=== PATIENT | male | born 1935 | race Caucasian/White ===

== ENCOUNTER → 2018-02-09 10:54 | Outpatient (CLI) | payer MEDICARE, OTHER, SELFPAY ==
[2018-02-09 11:07] LABS: Add Manual Diff / Slide Review NO; Basophils Percent Auto 1.2 % (0-2); Eosinophils Percent Auto 1.6 % (2-4); Hematocrit 39.5 % (41-53); Hemoglobin 13.6 g/dL (13.5-17.5); Lymphocytes Percent Auto 21.9 % (25-40); Mean Corpuscular HGB Conc 34.3 % (30-36); Mean Corpuscular Hemoglobin 31.8 PG (26-34); Mean Corpuscular Volume 92.8 fL (80-100); Neutrophils Absolute Auto 4500 /uL (3000-5900); Neutrophils Percent Auto 63.3 % (50-75); Platelet Count 279 X10^3/uL (150-400); Red Blood Cell Count 4.26 X10^6/uL (4.5-5.9); Red Cell Distribution Width 13.8 % (11.6-14.8); White Blood Cell Count 7.1 X10^3/uL (4.5-11.0)
[2018-02-09 11:18] LABS: Alanine Aminotransferase 26 IU/L (21-72); Albumin 4.4 g/dL (3.5-5.0); Albumin Globulin Ratio 1.6 (1.0-2.8); Alkaline Phosphatase 49 U/L (38-126); Aspartate Aminotransferase 27 IU/L (17-59); BUN Creatinine Ratio 22.2 (6-22); Blood Urea Nitrogen 20 mg/dL (9-20); Calcium 9.1 mg/dL (8.4-10.2); Carbon Dioxide 25 mmol/L (22-32); Chloride 98 mmol/L (98-107); Estimated Glomerular Filt Rate > 60.0 mL/min (>60); Globulin 2.7 g/dL (1.7-4.1); Glucose 97 mg/dL (80-110); HEMOLYSIS < 15 (0-50); Potassium 4.8 mmol/L (3.4-5.1); Sodium 136 mmol/L (137-145); Total Protein 7.1 g/dL (6.3-8.2)
--- NOTE | 2018-02-09 15:05 | PC.NURSE ---
stable labs, provider visit 02/13
== END ==
PROVIDERS: Family Provider Family Medicine; PCP Family Medicine; Visit Provider Nurse Practitioner Gerontology
DX: C76.0 Malignant neoplasm of head, face and neck (principal)
CPT/HCPCS: 36415; 80053; 85025

== ENCOUNTER → 2018-05-10 10:30 | Oncology outpatient (ONC) | payer MEDICARE, OTHER, SELFPAY ==
--- NOTE | 2018-02-13 09:26 | P.PNONC_ITS ---
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 He completed adjuvant combined modaltiy with therapy in March 2011. Joshua has no new complaints today. he reports having a recent visit with ENT Dr Boyer. In review of Dr Boyer' notes dated November 23, 2017 patient had presented with a symptomatic right facial swelling. MRI CT reports were reviewed imaging without evidence of disease recurrence. flexible laryngoscopy unremarkable, also without evidence of disease recurrence. The patient reports overall he is doing well. No new changes to report. He states ?I am the same?. No worsening issues with swallow. No new oral lesions, no new oral lumps or bumps. No change in his speech. No unexplained weight loss. No new pain. No new lumps or bumps. I have requested imaging reports from [facility]. Oncologic history: He was discovered to have a mass lesion on the floor of the mouth in late 2010. He was referred to Dr. Boyer, who referred him to Joo Daniels at [facility]. 12/2010: total oral glossectomy with right complete neck dissection and left modified radical neck dissection, with radial free flap reconstruction. Adjuvant chemoradiation with weekly cisplatin 30 mg/m2, completed 04/22/2011. He received 64 Gy in 32 fractions. Subsequently seen in regular surveillance at [facility] by Dr. Joo Daniels, Rola Raines and Edenilson Verduzco, and by his dentist every four months. 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 He wishes to have surveillance closer to home. 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 Home Medications and Allergies Home Medications Medication Instructions Recorded Confirmed Type lisinopril [Prinivil] 20 mg PO Q DAY #0 06/14/11 History amlodipine [Norvasc] 5 mg PO QDAY #0 05/19/16 History simvastatin 10 mg PO HS #0 05/19/16 History acetaminophen 325 mg PO Q4HP PRN #60 02/25/17 Rx aspirin 81 mg PO QDAY #0 05/20/17 History Allergies Allergy/AdvReac Type Severity Reaction Status Date / Time bee venom protein (honey bee) Allergy Severe HAND Unverified 06/08/17 12:18 [BEE VENOM PROTEIN (HONEY SWELLING BEE)] cefazolin [CEFAZOLIN] Allergy Severe HIVES Unverified 06/08/17 12:18 Exam Narrative: Appears younger than chronological age of 82. - Constitutional positive no acute distress - Routine HEENT Exam Eye: Present: conjunctivae pink. Absent: conjunctival icterus, scleral injection ENT: Present: mucous membranes moist, oropharynx clear Comments: no oral lesions, no visible masses - Routine Neck Exam Present: supple. Absent: lymphadenopathy, swelling - Routine Chest/Breast/Axilla Exam Axillae: Absent: lymphadenopathy, mass, tenderness - Routine Respiratory Exam Present: Clear to auscultation bilaterally. Absent: rales, rhonchi, wheezes - Routine Cardiovascular Exam Present: RRR, S1, S2. Absent: murmur, gallop, rubs, JVD - Routine Abdominal Exam Present: soft, normoactive bowel sounds. Absent: tenderness, distended, organomegaly, mass - Routine Extremities Exam Absent: edema, calf tenderness - Routine Skin Exam Present: intact, normal turgor. Absent: petechiae, rash - Routine Neurological Exam Present: alert, oriented X3 - Routine Psychiatric Exam Present: normal affect Results - Imaging Additional studies: Procedures Repair of hammer toe (09/04/10) Assessment and Plan (1) Squamous cell carcinoma Current visit: Yes Status: Acute 82-year-old male presents for routine scheduled triage. 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 He completed adjuvant combined modality therapy in March of 2011. Reassuringly on exam today he has no clinical signs or symptoms which would indicate recurrence. Additionally the patient was evaluated by ENT Dr. Boyer November 23, 2017 flexible laryngoscopy exam unremarkable, no evidence of disease recurrence. Patient reports he did have MRI also CT scan in October or November of this year at [facility]. He was told ?everything okay?. I have requested these results. Return to clinic in 3 months time I would like for the patient to establish with our oncologist Dr Macedo. CBC CMP unremarkable today no need to repeat for his next visit. - Time Spent with Patient 20 mins
[2018-02-13 09:40] VITALS: BP 129/72; PULSE 65; RESP 18; TEMP 36.8; O2SAT 99
[2018-05-10 10:36] VITALS: BP 141/78; PULSE 75; RESP 16; TEMP 36.5; O2SAT 100
--- NOTE | 2018-05-10 10:50 | ONC.PN ---
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 Previous treatment: 1. total oral glossectomy with right complete neck dissection and left modified radical neck dissection, with radial free flap reconstruction. December 2010 2. He completed adjuvant combined modaltiy with weekly cisplatin and radiation with therapy in March 2011. Interval history: The patient is an 82-year-old man who returns today for follow-up. He has a history of a squamous cell carcinoma involving the tongue and floor of the mouth. He underwent surgical resection in 2010 followed by weekly cisplatin with radiation which he finished in March 2011. He has been disease-free ever since. Last fall, he noticed some swelling under his mandible that was soft and nontender. His primary physician referred him back to Dr. Boyer who noted no sign of cancer. Since that time, the swelling has diminished in size although not completely resolved. It is not causing any symptoms for the patient. He has been using a prosthesis that helped some as swallow and his appetite has been stable. He has gained a few lb. He denies any nausea or vomiting. He has not noted any adenopathy. No shortness of breath or cough. No fevers or chills. He denies any other changes in his health. 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 Home Medications and Allergies Home Medications Medication Instructions Recorded Confirmed Type lisinopril [Prinivil] 20 mg PO Q DAY #0 06/14/11 05/10/18 History amlodipine [Norvasc] 5 mg PO QDAY #0 05/19/16 05/10/18 History simvastatin 10 mg PO HS #0 05/19/16 05/10/18 History aspirin 81 mg PO QDAY #0 05/20/17 05/10/18 History acetaminophen 325 mg PO Q4HP PRN 05/10/18 05/10/18 History Allergies Allergy/AdvReac Type Severity Reaction Status Date / Time bee venom protein (honey bee) Allergy Severe HAND Unverified 06/08/17 12:18 [BEE VENOM PROTEIN (HONEY SWELLING BEE)] cefazolin [CEFAZOLIN] Allergy Severe HIVES Unverified 06/08/17 12:18 Exam Vital signs: Vital Signs Temp Pulse Resp BP Pulse Ox 05/10/18 10:36 97.7 F 75 16 141/78 H 100 Intake and Output 05/09/18 05/10/18 05/10/18 23:59 07:59 15:59 Other: Weight 85.5 kg Patient Weight 05/11/18 07:59 Weight 85.5 kg - Constitutional positive no acute distress, positive average body habitus - Routine HEENT Exam Head: Present: normocephalic, atraumatic Eye: Present: EOMI, PERRL. Absent: conjunctival icterus, scleral injection ENT: Present: mucous membranes moist. Absent: dentition normal Comments: He has postoperative changes in the mouth and neck. There is no obvious mucosal lesions or masses. There is no adenopathy. - Routine Neck Exam Present: supple. Absent: lymphadenopathy, thyromegaly - Routine Respiratory Exam Present: Clear to auscultation bilaterally. Absent: rales, wheezes - Routine Cardiovascular Exam Present: RRR, S1, S2. Absent: murmur - Routine Abdominal Exam Present: soft, normoactive bowel sounds. Absent: tenderness, organomegaly - Routine Extremities Exam Absent: cyanosis, clubbing, edema - Routine Skin Exam Present: intact. Absent: petechiae, rash - Routine Neurological Exam Present: alert, oriented X3 - Routine Psychiatric Exam Present: normal affect, normal thought process Results - Imaging Additional studies: Procedures Repair of hammer toe (09/04/10) Assessment and Plan (1) Squamous cell carcinoma Current visit: Yes Status: Acute 82-year-old male presents for routine scheduled triage. 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 He completed adjuvant combined modality therapy in March of 2011 and is now 7 years out from the end of his treatment. He has no evidence of disease. He will return to clinic in 1 year for follow-up.
== END ==
PROVIDERS: Family Provider Family Medicine; PCP Family Medicine; Visit Provider Internal Medicine Hematology & Oncology
DX: Z08 Encounter for follow-up examination after completed treatment for malignant neoplasm (principal); Z85.810 Personal history of malignant neoplasm of tongue; I10 Essential (primary) hypertension; E78.5 Hyperlipidemia, unspecified; H90.5 Unspecified sensorineural hearing loss
CPT/HCPCS: 99214